=== PATIENT | female | born 1965 | race Caucasian/White ===

== ENCOUNTER 2020-09-05 10:47 | Outpatient (CLI) | payer BC, OTHER, SELFPAY ==
--- NOTE | ~2020-09-05 | MM_ITS ---
EXAMINATION: MM screening [facility] w [facility] HISTORY: Screening TECHNIQUE: Craniocaudal and mediolateral oblique 3-D tomosynthesis images were obtained and synthetic 2-D images were generated. CAD analysis was submitted and interpreted. COMPARISON: Comparison to multiple prior studies sequentially, with oldest reviewed study dated 05/24. BREAST PARENCHYMAL COMPOSITION: There are scattered areas of fibroglandular density. FINDINGS: There is a mass in the upper outer quadrant of the left breast which is new. The right evan st is stable without evidence for malignancy. IMPRESSION: 1. New left breast mass, upper outer quadrant. 2. Additional mammographic views and possible breast ultrasound are recommended. BI-RADS Category 0: Incomplete: Needs additional imaging evaluation. Reviewed, dictated and finalized at location A. A MILLING MACHINE OPERATOR IMPRESSION: 1. New left breast mass, upper outer quadrant. 2. Additional mammographic views and possible breast ultrasound are recommended . BI-RADS Category 0: Incomplete: Needs additional imaging evaluation.
== END 2020-09-05 10:48 | disposition home or self-care (01) ==
LOC: CHSIMG 10:52
PROVIDERS: PCP Family Medicine; Visit Provider Family Medicine
DX: Z12.31 Encounter for screening mammogram for malignant neoplasm of breast (principal)
CPT/HCPCS: 77063; 77067

== ENCOUNTER 2020-09-11 09:49 | Outpatient (CLI) | payer BC, OTHER, SELFPAY ==
--- NOTE | ~2020-09-11 | MMUS_ITS ---
EXAMINATION: MM diagnostic [facility] LT w ashley, US breast LT limited HISTORY: New upper outer quadrant left breast mass reported on 09/05/2020 screening mammogram TECHNIQUE: Additional 3-D tomosynthesis images of the left breast were performed and synthetic 2-D im ages were generated. CAD analysis was submitted and interpreted. High resolution upper outer and lowe r-outer quadrants left breast ultrasound was performed. COMPARISON: 09/05/2020 bilateral digital screening mammogram FINDINGS: MAMMOGRAPHIC FINDINGS: No definite reproducible mass is detected mammographically. ULTRASOUND: An approximately 1.6 mm cyst is suggested 2:00 3 cm from the nipple. No suspicious mass or shadowing is detected. IMPRESSION: 1. No mammographic evidence of malignancy 2. Routine annual mammographic screening is recommended. BI-RADS Category 2: Benign finding(s). Reviewed, dictated and finalized at location A. LITION SPECIALIST IMPRESSION: 1. No mammographic evidence of malignancy 2. Routine annual mammographic screening is recommended. BI-RADS Category 2: Benign finding(s).
== END 2020-09-11 09:50 | disposition home or self-care (01) ==
PROVIDERS: PCP Family Medicine; Visit Provider Family Medicine
DX: R92.8 Other abnormal and inconclusive findings on diagnostic imaging of breast (principal)
CPT/HCPCS: 76642; 77061; 77065; G0279

== ENCOUNTER 2021-11-05 07:17 | Outpatient (CLI) | payer BC, OTHER, SELFPAY ==
--- NOTE | ~2021-11-05 | MM_ITS ---
EXAMINATION: MM screening [facility] BI w ashley HISTORY: Screening mammogram TECHNIQUE: Craniocaudal and mediolateral oblique 3-D tomosynthesis images were obtained and synthetic 2-D images were generated. CAD analysis was submitted and interpreted. COMPARISON: 09/11/2020, 09/05/2020, 07/12/2019 BREAST PARENCHYMAL COMPOSITION: There are scattered areas of fibroglandular density. FINDINGS: There is no evidence of suspicious mass, calcification, or architectural distortion to sugg est malignancy in either breast. There has been no suspicious interval change. IMPRESSION: 1. No mammographic evidence of malignancy. 2. Recommend routine screening mammography in one year. BI-RADS Category 1: Negative Reviewed, dictated and finalized at location A.
== END 2021-11-05 07:18 | disposition home or self-care (01) ==
LOC: CHSIMG 07:19
PROVIDERS: PCP Family Medicine; Visit Provider Family Medicine
DX: Z12.31 Encounter for screening mammogram for malignant neoplasm of breast (principal)
CPT/HCPCS: 77063; 77067

== ENCOUNTER 2022-11-08 12:16 | Outpatient (CLI) | payer BC, OTHER, SELFPAY ==
--- NOTE | ~2022-11-08 | MM_ITS ---
EXAMINATION: MM screening [facility] BI w [facility] HISTORY: Screening mammogram TECHNIQUE: Craniocaudal and mediolateral oblique 3-D tomosynthesis images were obtained and synthetic 2-D images were generated. CAD analysis was submitted and interpreted. COMPARISON: 11/05/2021 bilateral screening mammogram 09/11/2020 diagnostic left mammogram and limited left breast ultrasound 09/05/2020, 07/12/2019 bilateral screening mammogram examinations BREAST PARENCHYMAL COMPOSITION: There are scattered areas of fibroglandular density. FINDINGS: Stable small circumscribed opacity consistent with intramammary lymph node, upper outer rig ht breast. There is no evidence of suspicious mass, calcification, or architectural distortion to sug gest malignancy in either breast. There has been no suspicious interval change. IMPRESSION: 1. No mammographic evidence of malignancy. 2. Recommend routine screening mammography in one year. BI-RADS Category 1: Negative Reviewed, dictated and finalized at location A.
== END 2022-11-08 12:17 | disposition home or self-care (01) ==
LOC: CHSIMG 12:18
PROVIDERS: PCP Family Medicine; Visit Provider Family Medicine
DX: Z12.31 Encounter for screening mammogram for malignant neoplasm of breast (principal)
CPT/HCPCS: 77063; 77067

== ENCOUNTER 2023-12-22 14:43 | Outpatient (CLI) | payer BC, OTHER, SELFPAY ==
--- NOTE | ~2023-12-22 | MM_ITS ---
EXAMINATION: MM screening [facility] BI w [facility] HISTORY: Screening mammogram TECHNIQUE: Craniocaudal and mediolateral oblique 3-D tomosynthesis images were obtained and synthetic 2-D images were generated. CAD analysis was submitted and interpreted. COMPARISON: 11/08/2022, 11/05/2021 lateral screening mammogram examinations BREAST PARENCHYMAL COMPOSITION: There are scattered areas of fibroglandular density. FINDINGS: There is no evidence of suspicious mass, calcification, or architectural distortion to sugg est malignancy in either breast. There has been no suspicious interval change. IMPRESSION: 1. No mammographic evidence of malignancy. 2. Recommend routine screening mammography in one year. BI-RADS Category 1: Negative Reviewed, dictated and finalized at location A.
== END 2023-12-22 14:44 | disposition home or self-care (01) ==
LOC: CHSIMG 14:44
PROVIDERS: PCP Family Medicine; Visit Provider Family Medicine
DX: Z12.31 Encounter for screening mammogram for malignant neoplasm of breast (principal)
CPT/HCPCS: 77063; 77067

== ENCOUNTER 2025-03-11 07:26 | Outpatient (CLI) | payer BC, OTHER, SELFPAY ==
--- NOTE | ~2025-03-11 | MM_ITS ---
EXAMINATION: MM screening [facility] BI w ashley HISTORY: Screening TECHNIQUE: Craniocaudal and mediolateral oblique 3-D tomosynthesis images were obtained and synthetic 2-D images were generated. CAD analysis was submitted and interpreted. COMPARISON: Comparison to multiple prior studies sequentially, with oldest reviewed study dated 06/25. BREAST PARENCHYMAL COMPOSITION: Not dense: There are scattered areas of fibroglandular density. FINDINGS: There is a benign-appearing intramammary lymph node in the upper outer quadrant of the righ t breast. There is partially obscured enlarging mass in the upper outer quadrant of the left breast, middle third. IMPRESSION: 1. Enlarging low density mass upper outer quadrant of the left breast, middle third. 2. Additional mammographic views and possible breast ultrasound are recommended. BI-RADS Category 0: Incomplete: Needs additional imaging evaluation. Reviewed, dictated and finalized at location B. IMPRESSION: 1. Enlarging low density mass upper outer quadrant of the left breast, middle t hird. 2. Additional mammographic views and possible breast ultrasound are recommended . BI-RADS Category 0: Incomplete: Needs additional imaging evaluation.
--- OUTSIDE RECORDS SUMMARY | 2025-03-11 07:29 | XMS_ITS | Clinical Summary ---
Author Organization [facility] Address [address] [place] [id number] Care Team Providers Care Plate Straightener Name Role Phone Gen Willett MD Primary Care Provider [phone] Allergies Active Allergy Reactions Criticality Noted Date Comments Amoxicillin Itching 11/12/2022 Medications ibuprofen (MOTRIN) 200 MG tablet Take 1 tablet (200 mg total) by mouth every 6 (six) hours as needed for Pain. Active TESTOSTERONE IM Inject 1 Dose into the muscle every 3 (three) months. Active losartan (COZAAR) 25 MG tablet Take 1 tablet (25 mg total) by mouth daily. 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 Gender Identity Not on file Sexual Orientation Not on file Last Filed Vital Signs Vital Sign Reading Time Taken Comments Blood Pressure 110/67 11/15/2022 9:25 AM CDT Pulse 78 11/15/2022 9:25 AM CDT Temperature 36 C (96.8 F) 11/15/2022 9:25 AM CDT Respiratory Rate 18 11/15/2022 9:25 AM CDT Oxygen Saturation 97% 11/15/2022 9:25 AM CDT Inhaled Oxygen Concentration - - Weight 79.4 kg (175 lb) 11/12/2022 11:08 AM CDT Height 160 cm (5' 3) 11/12/2022 11:08 AM CDT Body Mass Index 31 11/12/2022 11:08 AM CDT Plan of Treatment Health Maintenance Due Date Last Done Comments Annual Physical 1966 Hepatitis C 1981 DTaP, Tdap and Td Vaccines ( 1 - Tdap) 1982 Pneumococcal Vaccine: 50+ Years (1 of 2 - PCV) 1982 Mammogram Screening 2003 Zoster Vaccines (1 of 2) 2013 COVID-19 Vaccine (3 - 2023-2 5 season) 2024 05/11/2021, 04/06/2021 Colorectal Cancer Screening Colonoscopy (10 Years) 11/15/2032 11/15/2022, 11/15/2022 RSV Immunization or 60+ Years (1 - 1-dose 75+ series) 2038 Meningococcal B Vaccine Aged Out No l onger eligible based on patient's age to complete this topic Meningococcal Vaccine Aged Out No graciela saturnino eligible based on patient's age to complete this topic RSV Immunizations Under 20 Months Aged Out No longer eligible b ased on patient's age to complete this topic Procedures Procedure Name Priority Date/Time Associated Diagnosis Comments COLONOSCOPY 11/15/2022 6:45 AM CDT from Last 3 Months or Most Recently Relevant to Health Maintenance Results * Colonoscopy (11/15/2022 6:45 AM CDT) Mark Phelan MD GI PROCEDURE ORDERABLES Final Result from Last 3 Months or Most Recently Relevant to Health Maintenance Insurance [employer] Care Teams Plate Straightener Relationship Specialty Start Date End Date Gen Willett MD [address] [place] [id number] PCP - General FAMILY PRACTICE 06/04/22
== END 2025-03-11 07:27 | disposition home or self-care (01) ==
LOC: CHSIMG 07:28
PROVIDERS: PCP Family Medicine; Visit Provider Family Medicine
DX: Z12.31 Encounter for screening mammogram for malignant neoplasm of breast (principal); R92.8 Other abnormal and inconclusive findings on diagnostic imaging of breast
CPT/HCPCS: 77063; 77067

== ENCOUNTER 2025-03-21 09:02 | Outpatient (CLI) | payer BC, OTHER, SELFPAY ==
--- NOTE | ~2025-03-21 | MMUS_ITS ---
EXAMINATION: MM diagnostic [facility] LT w ashley, US breast LT limited HISTORY: Follow-up left breast asymmetry. TECHNIQUE: Additional 3-D tomosynthesis images of the left breast were performed and synthetic 2-D im ages were generated. CAD analysis was submitted and interpreted. High resolution Limited left breast ultrasound was performed. COMPARISON: Comparison to multiple prior studies sequentially, with oldest reviewed study dated 09/05. BREAST PARENCHYMAL COMPOSITION: Dense: The breasts are heterogeneously dense, which may obscure small masses FINDINGS: MAMMOGRAPHIC FINDINGS: There is a focal low-density mass in the upper outer aspect of the left breast, middle third. No susp icious calcifications or architectural distortion. ULTRASOUND: Complete US of all 4 quadrants of the breast/s and retroareolar region was reviewed. At 1:00, 2 cm fr om the nipple there is an oval circumscribed parallel oriented hypoechoic mass with echogenic hilum, no posterior features and no internal vascularity, consistent with a benign intramammary lymph node w hich corresponds to the area of mammographic concern. This lymph node measures 9 x 8 x 5 mm. IMPRESSION: 1. No evidence for malignancy in the left breast. Benign finding. 2. Routine yearly screening mammogram and regular clinical breast examination are recommended. BI-RADS Category 2: Benign finding(s). Reviewed, dictated and finalized at location B. IMPRESSION: 1. No evidence for malignancy in the left breast. Benign finding. 2. Routine yearly screening mammogram and regular clinical breast examination a re recommended. BI-RADS Category 2: Benign finding(s).
== END 2025-03-21 09:03 | disposition home or self-care (01) ==
LOC: CHSIMG 09:04
PROVIDERS: PCP Family Medicine; Visit Provider Family Medicine
DX: N63.21 Unspecified lump in the left breast, upper outer quadrant (principal)
CPT/HCPCS: 76642; 77061; 77065; G0279